=== PATIENT | female | born 2005 | race Caucasian/White ===

== ENCOUNTER 2023-07-25 15:06 | Emergency (ER) | payer MEDICAID ==
[~2023-07-25] VITALS: Ht 165.1 cm; Wt 141.1 kg
[2023-07-25 15:31] VITALS: BP 143/87; PULSE 71; RESP 18; TEMP 97.9; O2SAT 100
[2023-07-25] MEDS ORDERED: BENZ200C4 PO (16:07)
[2023-07-25] MEDS ORDERED: BENZ-300 PO (16:07)
== END 2023-07-25 16:13 | disposition home or self-care (01) ==
LOC: MED 15:06
DX: J02.9 Acute pharyngitis, unspecified (principal); R05.9 Cough, unspecified; Z79.899 Other long term (current) drug therapy
CPT/HCPCS: 99283

== ENCOUNTER 2023-09-05 08:56 | Emergency (ER) | payer MEDICAID ==
[~2023-09-05] VITALS: Ht 165.1 cm; Wt 141.1 kg
[~2023-09-05 08:56] MED LIST: BENZ-300 PO; BENZ200C4 PO
[2023-09-05 09:01] VITALS: BP 149/97; PULSE 89; RESP 18; TEMP 97.2; O2SAT 98
[2023-09-05 09:59] LABS: BASOPHILS % (AUTO) 0.4 % (0.0-2.0); EOSINOPHILS % (AUTO) 0.3 % (0.0-4.0); HEMOGLOBIN 14.6 g/dL (12.0-16.0); LYMPHOCYTES # (AUTO) 1.9 K/uL (2.5-16.5); MEAN CORPUSCULAR HEMOGLOBIN 31 pg (27-31); MEAN CORPUSCULAR HGB CONC 34 g/dL (33-37); MONOCYTES # (AUTO) 0.5 K/uL (0.8-1.0); MONOCYTES % (AUTO) 6.5 % (1.7-9.3); NEUTROPHILS # (AUTO) 5.9 K/uL (1.8-7.7); NEUTROPHILS % (AUTO) 69.8 % (42.2-75.2); PLATELET COUNT (AUTO) 246 K/uL (140-450); RED BLOOD CELL COUNT(AUTO) 4.72 MIL/uL (4.20-5.40); RED CELL DISTRIBUTION WIDTH 12.8 % (11.6-13.7); WHITE BLOOD COUNT (AUTO) 8.5 K/uL (4.5-11.0)
[2023-09-05 10:22] LABS: ANION GAP 11.4 (8-16); CALCIUM 9.1 mg/dL (8.5-10.1); CARBON DIOXIDE 26.1 mmol/L (21-32); CREATININE 0.7 mg/dL (0.6-1.3); POTASSIUM 4.5 mmol/L (3.5-5.1)
[2023-09-05 10:25] LABS: ALBUMIN 4.1 g/dL (3.4-5.0); BILIRUBIN,DIRECT 0.1 mg/dL (0.0-0.3); TOTAL BILIRUBIN 0.3 mg/dL (0.0-1.0); TOTAL PROTEIN, SERUM 7.5 g/dL (6.4-8.2)
[2023-09-05] MEDS ORDERED: ACET-8905 PO (10:48)
[2023-09-05] MEDS ORDERED: ONDA-188 PO (10:48)
[2023-09-05 11:20] VITALS: BP 148/94; PULSE 75; RESP 16; TEMP 97.2; O2SAT 98
== END 2023-09-05 11:20 | disposition home or self-care (01) ==
LOC: MED 08:56
DX: M54.9 Dorsalgia, unspecified (principal); R10.11 Right upper quadrant pain; R11.2 Nausea with vomiting, unspecified; Z79.1 Long term (current) use of non-steroidal anti-inflammatories (NSAID); Z79.899 Other long term (current) drug therapy
CPT/HCPCS: 36415; 76705; 80048; 80076; 81002; 81025; 83690; 85025; 99284; Q0092